=== PATIENT | female | born 1995 | race African-American/Black ===

== ENCOUNTER 2017-10-20 08:52 | Emergency (ER) | payer BC ==
[~2017-10-20] VITALS: Ht 152.4 cm; Wt 78.5 kg
[2017-10-20 08:53] VITALS: BP 123/75; PULSE 84; RESP 16; TEMP 98.8; O2SAT 99
[2017-10-20] MEDS ORDERED: LIDOCAINE VISCOUS 2% SOLN 15 ML UDC SWISH-SWAL STA (09:28)
--- NOTE | 2017-10-20 09:28 | PD ---
HPI Chief Complaint: Chest Pain Time Seen by Provider: 09:10 Travel History International Travel<30 days: No Contact w/Intl Traveler<30days: No Traveled to known affect area: No History of Present Illness HPI 22-year-old female presents to the emergency department complaining of midsternal chest pain that started last night. Patient states that whenever she rolls over in bed she has this pain in the middle of her chest that decreases with movement. States she had strep pharyngitis approximately 2 weeks ago and had treatment but denies any recent upper store infections including cough or cold-like symptoms. States the pain is 7 out of 10 and nonradiating. Patient denies trauma, shortness breath, nausea, vomiting, diarrhea. Pain is not positional. She denies family history of cardiac issues , denies tobacco use, hyperlipidemia, diabetes or hypertension. Patient does not take any medication regularly. Denies chronic medical issues. Last menstrual period September 10 which is not normal for her. PFSH Past Medical History Medical History: Denies Significant Hx Diminished Hearing: No ?: Unknown LMP: 09/11/17 Social History Alcohol Use: No Tobacco Use: No Substance Use: No Allergies-Medications (Allergen,Severity, Reaction): Coded Allergies: No Known Allergies (Verified Allergy, Unknown, 10/20/17) Reported Meds & Prescriptions Reported Meds & Active Scripts Active No Active Prescriptions or Reported Medications Review of Systems Except as stated in HPI: all other systems reviewed are Neg Physical Exam Narrative GENERAL: Well-developed well-nourished in no apparent distress, sitting comfortably in bed SKIN: Warm and dry. No ecchymosis or rashes HEAD: Normocephalic. EYES: No scleral icterus. No injection or drainage. NECK: Supple, trachea midline. No JVD or lymphadenopathy. THROAT: Mild pharyngeal injection without exudates or tonsillar hypertrophy. Airway is patent. CARDIOVASCULAR: Regular rate and rhythm without murmurs, gallops, or rubs. RESPIRATORY: Breath sounds equal bilaterally. No accessory muscle use. GASTROINTESTINAL: Abdomen soft, non-tender, nondistended. MUSCULOSKELETAL: No cyanosis, or edema. Palpation of midsternal area reproduces her pain. Norbert's sign negative. BACK: Nontender without obvious deformity. No CVA tenderness. Data Data Last Documented VS Vital Signs Date Time Temp Pulse Resp B/P (MAP) Pulse Ox O2 Delivery O2 Flow Rate FiO2 12/29/17 14:20 10/20/17 08:53 98.8 84 16 99 Room Air Orders Orders Chest, Single Ap (10/20/17 ) Ed Urine Pregnancytest Poc (10/20/17 09:17) Electrocardiogram (10/20/17 ) Al-Mag Hy-Si 40-40-4 Mg/Ml Liq (Mag-Al P (10/20/17 09:30) Lidocaine 2% Viscous (Xylocaine 2% Visco (10/20/17 09:28) D-Dimer (10/20/17 09:40) Basic Metabolic Panel (Bmp) (10/20/17 09:40) Ct Pulmonary Angiogram (10/20/17 ) Ventilation & Perfusion Scan (10/20/17 ) Iohexol 350 Inj (Omnipaque 350 Inj) (10/20/17 12:01) Ed Discharge Order (10/20/17 13:57) Labs Laboratory Tests Test 10/20/17 09:55 D-Dimer Quantitative (PE/DVT) 0.59 MG/L FEU Blood Urea Nitrogen 10 MG/DL Creatinine 0.74 MG/DL Random Glucose 90 MG/DL Calcium Level 8.5 MG/DL Sodium Level 139 MEQ/L Potassium Level 3.8 MEQ/L Chloride Level 106 MEQ/L Carbon Dioxide Level 25.1 MEQ/L Anion Gap 8 MEQ/L Estimat Glomerular Filtration Rate 120 ML/MIN MDM Medical Decision Making Medical Screen Exam Complete: Yes Emergency Medical Condition: Yes Differential Diagnosis Costochondritis, PE, NE, bronchitis, diffuse esophageal spasms Narrative Course 22-year-old female presents to the emergency department complaining of midsternal chest pain that started last night. Patient states that whenever she rolls over in bed she has this pain in the middle of her chest that decreases with movement. States she had strep pharyngitis approximately 2 weeks ago and had treatment but denies any recent upper store infections including cough or cold-like symptoms. States the pain is 7 out of 10 and nonradiating. Patient denies trauma, shortness breath, nausea, vomiting, diarrhea. Pain is not positional. She denies family history of cardiac issues , denies tobacco use, hyperlipidemia, diabetes or hypertension. Patient does not take any medication regularly. Denies chronic medical issues. Last menstrual period September 10 which is not normal for her. Vital signs stable. POC negative Physical exam findings- 22-year-old female resting comfortably in bed, palpation of the mid sternum reproduces her chest pain. Pharynx mildly injected without tonsillar hypertrophy or exudate. GI cocktail administered without significant relief CXR without acute process. EKG- concern for S1Q3T3 with T wave inversion lead III. Laboratory Tests Test 10/20/17 09:55 D-Dimer Quantitative (PE/DVT) 0.59 MG/L FEU Blood Urea Nitrogen 10 MG/DL Creatinine 0.74 MG/DL Random Glucose 90 MG/DL Calcium Level 8.5 MG/DL Sodium Level 139 MEQ/L Potassium Level 3.8 MEQ/L Chloride Level 106 MEQ/L Carbon Dioxide Level 25.1 MEQ/L Anion Gap 8 MEQ/L Estimat Glomerular Filtration Rate 120 ML/MIN D-dimer elevated. CT ordered to rule out PE. CT was unable to rule out PE secondary to poor IV flow. There was delay in the emergency department secondary to issues with the IV and the CT room. VQ scan ordered at the recommendation of the radiologist. Last Impressions Lung Scan-VQ Nuclear Medicine 10/20/17 0000 Signed Impressions: Service Date/Time: Friday, October 20, 2017 13:18 - CONCLUSION: Normal ventilation/perfusion lung scan. A Redd Saenz MD Chest X-Ray 10/20/17 0000 Signed Impressions: Service Date/Time: Friday, October 20, 2017 09:20 - CONCLUSION: No acute disease. Angel Gifford MD CT Angiography 10/20/17 0000 Signed Impressions: Service Date/Time: Friday, October 20, 2017 11:23 - CONCLUSION: 1. No evidence for pulmonary artery embolism to the proximal segmental level. More distal segmental and subsegmental pulmonary branches are not sufficiently visualized for evaluation. 2. Unremarkable CT examination of the chest. Ismael Dixon MD Patient advised follow-up with her primary care physician within 2-3 days. M86 Security information given. Advised to return to the emergency department for worsening or persists symptoms. Use Tylenol or Motrin per package instructions for symptom relief. [id number] antihistamines for rhinorrhea which may be a developing upper respiratory infection. Patient remain comfortable and in no acute distress throughout the visit. Patient states understanding and will comply with instructions as above. Diagnosis Primary Impression: Costochondral chest pain Referrals: Primary Care Physician Additional Instructions: Follow up with your primary care physician within 2-3 days. If your symptoms persist or worsen, return to the emergency department. You mat use tylenol or motrin per package instructions for your pain. Consider allergy medications for your nasal symptoms. Scripts No Active Prescriptions or Reported Meds Disposition: 01 DISCHARGE HOME Condition: Stable Madeline Martin Oct 20, 2017 09:28
[2017-10-20] MEDS ORDERED: ALUMINUM/MAGNESIUM/SIMETH 30 ML CUP PO ONE (09:30)
--- NOTE | 2017-10-20 09:53 | RADRPT ---
EXAM DATE/TIME: 10/20/2017 09:20 [facility] COMPARISON: No previous studies available for comparison. INDICATIONS : Chest pain. MEDICAL HISTORY : None. SURGICAL HISTORY : None. ENCOUNTER: Initial ACUITY: 1 day PAIN SCORE: 7/10 LOCATION: Bilateral chest FINDINGS: A single view of the chest demonstrates the lungs to be symmetrically aerated without evidence of mas s, infiltrate or effusion. The heart size is at the upper limits of normal with no perihilar edema. Osseous structures are intact. CONCLUSION: No acute disease. Angel Gifford MD on October 20, 2017 at 9:51 Board Certified Radiologist. This report was verified electronically.
[2017-10-20 10:27] LABS: BICARBONATE 25.1 MEQ/L (21.0-32.0); CALCIUM 8.5 MG/DL (8.5-10.1); CREATININE 0.74 MG/DL (0.50-1.00)
[2017-10-20] MEDS ORDERED: IOHEXOL 350 MG/ML 10 ML VIAL (for RAD DIAG) IVCONTRAST ONE (12:01)
--- NOTE | 2017-10-20 12:16 | RADRPT ---
EXAM DATE/TIME: 10/20/2017 11:23 [facility] COMPARISON: No previous studies available for comparison. INDICATIONS : Substernal chest pain and pressure.Elevated d dimer. IV CONTRAST: 75 cc Omnipaque 350 (iohexol) IV RADIATION DOSE: 10.59 CTDIvol (mGy) MEDICAL HISTORY : None SURGICAL HISTORY : None. ENCOUNTER: Initial ACUITY: 1 day PAIN SCALE: LOCATION: chest TECHNIQUE: Volumetric scanning of the chest was performed using a pulmonary embolism protocol MIP images were re constructed. Using automated exposure control and adjustment of the mA and/or kV according to patien t size, radiation dose was kept as low as reasonably achievable to obtain optimal diagnostic quality images. DICOM format image data is available electronically for review and comparison. Follow-up recommendations for detected pulmonary nodules are based at a minimum on nodule size and pa tient risk factors according to Fleischner Society Guidelines. FINDINGS: PULMONARY ARTERIES: The only arteries are visualized to the proximal segmental level without evidence for intraluminal fi lling defects. More distal segmental and subsegmental pulmonary branches are not adequately visualize d. LUNGS: Small subcentimeter cyst in the anterior left upper lobe. No focal parenchymal opacities. PLEURAE: There is no pleural thickening or pleural effusion. MEDIASTINUM: There is good visualization of the great vessels of the middle mediastinum. No evidence of mediastin al or hilar adenopathy/mass. MUSCULOSKELETAL: Within normal limits for patient age. MISCELLANEOUS: The visualized upper abdominal organs demonstrate no acute abnormality. CONCLUSION: 1. No evidence for pulmonary artery embolism to the proximal segmental level. More distal segmental a nd subsegmental pulmonary branches are not sufficiently visualized for evaluation. 2. Unremarkable CT examination of the chest. Ismael Dixon MD on October 20, 2017 at 12:09 Board Certified Radiologist. This report was verified electronically.
--- NOTE | 2017-10-20 13:54 | RADRPT ---
EXAM DATE/TIME: 10/20/2017 13:18 [facility] COMPARISON: CHEST SINGLE AP, October 20, 2017, 9:20. INDICATIONS : Dyspnea and chest pain. DOSE: 8.1 mCi Tc99m MAA IV 0.8 mCi Tc99m DTPA aerosol MEDICAL HISTORY : None SURGICAL HISTORY : None. ENCOUNTER: Initial ACUITY: 1 day PAIN SCALE: 1/10 LOCATION: Chest. TECHNIQUE: Following five minutes of tidal breathing of DTPA aerosol, planar images of the lungs were performed in eight projections. The patient was then injected with MAA, and eight-view perfusion scan was perf ormed. FINDINGS: There is a homogeneous pattern of aerosol delivery to the periphery of both lungs. No focal ventilat ory defects are seen. The perfusion lung scan demonstrates a homogenous pattern of uptake in both lungs. No segmental or s ubsegmental defects are seen. Chest x-ray demonstrates lungs to be clear. CONCLUSION: Normal ventilation/perfusion lung scan. A Redd Saenz MD on October 20, 2017 at 13:50 Board Certified Radiologist. This report was verified electronically.
--- NOTE | 2017-10-20 14:04 | EKG ---
Date Performed: 10/20/2017 Time Performed: 09:28:23 PTAGE: 22 years EKG: Sinus rhythm NONSPECIFIC T-WAVE ABNORMALITY BORDERLINE ECG NO PREVIOUS TRACING DOCTOR: Kyler Ann Interpretating Date/Time 10/20/2017 14:04:19
== END 2017-10-20 14:48 | disposition home or self-care (01) ==
LOC: NEPD 08:52
DX: R07.89 Other chest pain (principal); R05 Cough; R94.31 Abnormal electrocardiogram [ECG] [EKG]
CPT/HCPCS: 71010; 71275; 78582; 80048; 84703; 85379; 93005; 99285; A9540; A9567; Q9967

== ENCOUNTER 2018-01-21 13:11 | Emergency (ER) | payer SELFPAY ==
[~2018-01-21] VITALS: Ht 152.4 cm; Wt 75.0 kg
[2018-01-21 13:22] VITALS: BP 136/66; PULSE 94; RESP 16; TEMP 98.5; O2SAT 100
== END 2018-01-21 13:20 | disposition left against medical advice (07) ==
LOC: NED 13:11
DX: R11.0 Nausea (principal)
CPT/HCPCS: 99281

== ENCOUNTER 2018-09-07 23:27 | Inpatient (IN) ==
[2018-09-07] MEDS ORDERED: Citric Acid/Sodium Citrate Liq 30 ML UDC PO SCH (23:45)
[2018-09-07] MEDS ORDERED: Naloxone Inj 0.4 MG/ML Vial IV.PUSH PRN (23:58)
[2018-09-07] MEDS ORDERED: Oxytocin 30 Units/500ml Premix 30 UNITS/500 ML BAG IV.SIG ONE (23:58)
[2018-09-07] MEDS ORDERED: fentaNYL Citrate Inj 100 MCG/2 ML Ampul IV.PUSH PRN (23:58)
[2018-09-07] MEDS ORDERED: Sodium Chlor 0.9% Inj 500 ML IV.SIG PRN (23:58)
[2018-09-07] MEDS ORDERED: Sod Chloride 0.9% Inj 1,000 ML IV.CONT PRN (23:58)
[2018-09-08] MEDS ORDERED: Oxytocin 30 Units/500ml Premix 30 UNITS/500 ML BAG IV.SIG PRN
--- NOTE | 2018-09-08 00:05 | P.HPOB ---
Patient Name: Micki Borrero Date of : 89 Patient Status: Emergency Emergency Provider: Bar Weaver Date: 09/07/18 13:50 Initialization Date: 09/07/18 13:50 History of Present Illness Primary Care Physician: No Primary Care Physician Dr. Franco Richardson Chief Complaint: Leaking fluid cramping History of Present Illness: Patient is a 23-year-old white female G one P0 at 40 weeks [facility] and presents complaining of leaking fluid per vagina. Denies bleeding. She is having some crampy pains & contractions. heart rate tracing is reactive and were not seeing any contractions at this time. Gross SROM noted Weeks Gestation:: 40 Para: 0 : 1 Review of Systems All other systems reviewed negative except as stated in HPI PMFSH - Tobacco History Second Hand Smoke Exposure: No Tobacco Use In Past 30 Days: No Smoking Status: Never smoker - Alcohol History How Often Do You Have a Drink Containing Alcohol: Never - Substance Use History Substance History: No History of Abuse - Travel History History of Recent Travel: No Recent Travel in the [place] Within the Last 8 Weeks: No Recent Travel Out of the Country Within the Last 8 Weeks: No Medications and Allergies Allergies Allergy/AdvReac Type Severity Reaction Status Date / Time No Known Allergies Allergy Verified 09/07/18 13:19 Home Medications Medication Instructions Recorded Confirmed Type No Known Home Medications 09/07/18 09/07/18 History Exam Vital signs: Vital Signs 09/07/18 13:27 09/07/18 13:30 09/07/18 13:35 Temperature 98.7 F Pulse Rate 92 H 90 Respiratory Rate 17 Blood Pressure 118/64 Intake & Output 09/06/18 09/07/18 09/07/18 18:59 06:59 18:59 Weight 77.564 kg Narrative: GENERAL: Well-nourished, well-developed patient. SKIN: Warm and dry. HEAD: Normocephalic and atraumatic. EYES: No scleral icterus. No injection or drainage. ENT: No nasal drainage noted. Mucous membranes pink. Airway patent. NECK: Supple, trachea midline. No JVD. CARDIOVASCULAR: Regular rate and rhythm without murmurs, gallops, or rubs. RESPIRATORY: Breath sounds equal bilaterally. No accessory muscle use. BREASTS: Bilateral exam showed no masses , no retractions, no nipple discharge. ABDOMEN/GI: Abdomen soft, non-tender, bowel sounds present, no rebound, no guarding Gravid to [40-] weeks size Fundal Height: [37-] GENITOURINARY: External Genitalia: intact and normal in appearance BUS glands: [-] Cervix: [post-] Dilatation:- 1 cm Effacement: [ 60] Station: [-2] Presentation: [vtx-] Membranes: SROM Uterine Contractions: [ q 3 min] FHT's: Category: [1-] Baseline: [-133] Reactive: [R-] Variability: [-mod] Decels: [0-]+ accels EXTREMITIES: No cyanosis or edema. BACK: Nontender without obvious deformity. No CVA tenderness. NEUROLOGICAL: Awake and alert. Motor and sensory grossly within normal limits. Five out of 5 muscle strength in all muscle groups. Normal speech. Results - Labs Labs: Assessment and Plan - Diagnosis (1) leakage of amniotic fluid into vagina Code(s): Z03.71 - Encounter for suspected problem with amniotic cavity and membrane ruled out Status: Acute (2) Abdominal cramping affecting Code(s): O26.899 - Other specified related conditions, unspecified trimester; R10.9 - Unspecified abdominal pain Status: Acute (3) 40 weeks gestation of Code(s): Z3A.40 - 40 weeks gestation of Status: Acute - Plan Admit for SROM and early labor Plan to augment prn - Physicians Team ED Provider: Bar Weaver Primary Care Provider: Primary Care Physici,Shaye - Rxs /Orders / Referrals /Forms Prescriptions: No Action No Known Home Medications
[2018-09-08 00:40] LABS: Baso % (Auto) 0.4 % (0.0-2.0); Eos # (Auto) 0.1 th/mm3 (0.0-0.4); Eos % (Auto) 0.4 % (0.0-4.0); Hemoglobin 11.5 gm/dL (11.6-15.3); Lymph # (Auto) 2.2 th/mm3 (1.0-4.8); Mean Corpuscular HGB Conc 32.9 % (32.0-36.0); Mean Corpuscular Hemoglobin 29.3 pg (27.0-34.0); Mean Corpuscular Volume 89.1 fL (80.0-100.0); Mean Platelet Volume 7.9 fL (7.0-11.0); Mono # (Auto) 1.1 th/mm3 (0.0-0.9); Mono % (Auto) 9.8 % (0.0-8.0); Neut # (Auto) 8.2 th/mm3 (1.8-7.7); Neut % (Auto) 70.4 % (16.0-70.0); Platelet Count 272 th/mm3 (150-450); Red Blood Count 3.92 mil/mm3 (4.00-5.30); Red Cell Distribution Width 15.1 % (11.6-17.2); White Blood Count 11.7 th/mm3 (4.0-11.0)
[2018-09-08 00:44] LABS: Bilirubin,Urine Negative (Negative); Clarity,Urine Hazy (Clear); Color,Urine Yellow (Yellw/Straw); Glucose,Urine (UA) Negative (Negative); Leukocyte Esterase,Urine Negative (Negative); Mucus,Urine Few /lpf (Occasional); Nitrite,Urine Negative (Negative); Specific Gravity,Urine 1.021 (1.002-1.035); Squamous Epithelial Cell,Urine 2 /hpf (0-5)
[2018-09-08 00:50] LABS: Amphetamine Urine With Conf Neg (Neg); Benzodiazepine Urine With Conf Neg (Neg)
[2018-09-08] MEDS: fentaNYL Citrate Inj 100 MCG/2 ML Ampul IV.PUSH PRN ×3 (06:43→13:28)
[2018-09-08] MEDS ORDERED: fentaNYL 2MCG-Bupiv 0.125% Epi 150 ML EPIDURAL ONE (13:24)
[2018-09-08] MEDS ORDERED: Lidocaine PF 1% Inj 30 ML Vial ONE (13:49)
[2018-09-08] MEDS ORDERED: Lidocaaine 1.5%/Epinephrine 1:200,000 PF Inj 5 ML Amp ONE (13:49)
[2018-09-08] MEDS ORDERED: fentaNYL Citrate Inj 100 MCG/2 ML Ampul EPIDURAL ONE (14:47)
[2018-09-08] MEDS ORDERED: fentaNYL 2MCG-Bupiv 0.125% Epi 150 ML EPIDURAL PRN (14:47)
[2018-09-08] MEDS ORDERED: Measles/Mumps/Rubella Vaccine Inj 0.5 ML Vial SQ ONE (16:00)
[2018-09-08] MEDS ORDERED: Diphtheria/Tetanus/Pertussis Vaccine Inj 0.5 ML Syringe IM ONE (16:00)
--- NOTE | 2018-09-08 18:43 | P.OBGPN ---
Labor note Subjective: Patient is comfortable with epidural. Objective: Vital signs stable, category 1 heart rate, adequate contraction pattern with Pitocin and IUPC in place. Cervix 4-5 cm, -1 station per RN examination Assessment: Primigravida in early labor following PROM at term Plan: Continue Pitocin.
[2018-09-08 20:08] VITALS: RESP 18
[2018-09-08] MEDS ORDERED: Witch Hazel 50%/Glyderin 12.5% 40 Pad Jar RECTAL PRN (21:37)
[2018-09-08] MEDS ORDERED: Oxytocin 30 Units/500ml Premix 30 UNITS/500 ML BAG IV.CONT PRN (21:37)
[2018-09-08] MEDS ORDERED: Acetaminophen 325 MG Tablet PO PRN (21:37)
[2018-09-08] MEDS ORDERED: Zolpidem Tartrate 5 MG Tablet PO PRN (21:37)
[2018-09-08] MEDS ORDERED: Benzocaine 20% Top Spray 60 ML Can TOPICAL PRN (21:37)
[2018-09-08] MEDS ORDERED: Naloxone Inj 0.4 MG/ML Vial IV.PUSH PRN (21:37)
[2018-09-08] MEDS ORDERED: Bisacodyl 10 MG Supp RECTAL PRN (21:37)
--- NOTE | 2018-09-08 21:37 | P.OBDELI ---
Medical Induction of Labor: Yes Artificial Rupture of Membrane: No Anesthesia: Epidural Episiotomy: none Vaginal Delivery: Normal Presentation: Occiput anterior Nuchal Cord: x2 Delayed Cord Clamping (45 sec): Yes Placenta: Spontaneous delivery, Intact Laceration: None Estimated blood loss (mL): 150 Infant: Female
[2018-09-09] MEDS: Senna/Docusate Sodium 8.6/50 MG Tablet PO SCH ×2 (08:41→20:53)
--- NOTE | 2018-09-09 09:18 | P.PNOB ---
Subjective Interval history: Patient is a 23 year-old delivered at 40 weeks and 4 days. Patient is day 1 after . Patient's pain is well-controlled. Patient reports eating and drinking without any nausea or vomiting. Patient reports minimal bleeding. Patient has passed gas but no bowel movements. Patient is walking without lower extremity pain or shortness of breath. Patient reports desire for contraception. She denies any chest pain. Objective Vital Signs/I&O: Vital Signs 09/08/18 09:30 09/08/18 10:01 09/08/18 10:31 Temperature Pulse Rate 76 73 71 Respiratory Rate Blood Pressure 114/73 117/63 106/54 L 09/08/18 11:01 09/08/18 11:31 09/08/18 11:45 Temperature 97.7 F Pulse Rate 74 82 Respiratory Rate 16 Blood Pressure 111/58 L 115/59 L 09/08/18 13:04 09/08/18 13:40 09/08/18 14:07 Temperature 97.7 F Pulse Rate 89 73 91 H Respiratory Rate Blood Pressure 117/63 123/53 L 121/71 09/08/18 14:15 09/08/18 14:31 09/08/18 14:35 Temperature Pulse Rate 81 72 77 Respiratory Rate 16 Blood Pressure 112/69 119/50 L 09/08/18 14:40 09/08/18 14:50 09/08/18 15:10 Temperature Pulse Rate 71 78 76 Respiratory Rate Blood Pressure 108/62 102/56 L 09/08/18 15:31 09/08/18 15:40 09/08/18 16:25 Temperature Pulse Rate 77 76 73 Respiratory Rate Blood Pressure 111/60 105/57 L 09/08/18 17:00 09/08/18 17:05 09/08/18 17:10 Temperature 97.7 F Pulse Rate 79 81 Respiratory Rate 18 Blood Pressure 134/79 124/55 L 09/08/18 17:55 09/08/18 18:00 09/08/18 18:50 Temperature Pulse Rate 89 86 83 Respiratory Rate 16 Blood Pressure 09/08/18 19:05 09/08/18 19:06 09/08/18 19:15 Temperature 99.3 F Pulse Rate 87 90 89 Respiratory Rate 16 Blood Pressure 104/55 L 09/08/18 19:20 09/08/18 19:25 09/08/18 19:35 Temperature Pulse Rate 92 H 94 H 87 Respiratory Rate Blood Pressure 09/08/18 19:40 09/08/18 19:45 09/08/18 19:50 Temperature Pulse Rate 88 91 H 93 H Respiratory Rate Blood Pressure 09/08/18 19:55 09/08/18 20:00 09/08/18 20:05 Temperature Pulse Rate 91 H 92 H 92 H Respiratory Rate Blood Pressure 09/08/18 20:08 09/08/18 20:10 09/08/18 20:15 Temperature Pulse Rate 77 95 H 90 Respiratory Rate 18 Blood Pressure 118/61 09/08/18 20:20 09/08/18 20:25 09/08/18 20:31 Temperature Pulse Rate 90 89 81 Respiratory Rate Blood Pressure 130/72 09/08/18 20:40 09/08/18 20:45 09/08/18 20:50 Temperature Pulse Rate 89 87 83 Respiratory Rate Blood Pressure 09/08/18 20:55 09/08/18 21:10 09/08/18 21:43 Temperature 98.6 F 98.5 F Pulse Rate 80 100 H 85 Respiratory Rate 18 Blood Pressure 110/59 L 09/08/18 21:45 09/08/18 22:00 09/08/18 22:01 Temperature Pulse Rate 88 85 Respiratory Rate 18 Blood Pressure 107/43 L 113/57 L 09/08/18 22:15 09/08/18 22:16 09/08/18 22:30 Temperature Pulse Rate 80 132 H Respiratory Rate 18 18 Blood Pressure 100/47 L 89/68 L 09/08/18 22:45 09/08/18 23:00 09/08/18 23:45 Temperature 98.8 F Pulse Rate 70 71 68 Respiratory Rate 18 Blood Pressure 106/53 L 111/76 101/60 Intake & Output 09/08/18 09/09/18 09/09/18 18:59 06:59 18:59 Intake Total 1999 1000 / 1000 Balance 1999 1000 / 1000 Intake: IV 1999 1000 / 1000 LR 1000 mL Inj 1,000 ML @ 125 1999 1000 / 1000 mls/hr IV.CONT .[facility] Rx#: [id number] Result Diagrams: 09/08/18 00:30 Objective Remarks: GENERAL: Well-nourished, well-developed patient. CARDIOVASCULAR: Regular rate and rhythm without murmurs, gallops, or rubs. RESPIRATORY: Breath sounds equal bilaterally. No accessory muscle use. ABDOMEN/GI: Abdomen soft, non-tender. Fundus: Firm, non-tender below the umbilicus. GENITOURINARY: Light to moderate bleeding. EXTREMITIES: No cyanosis or edema, non-tender, without signs of DVT. Medications and IVs: Active Medications Acetaminophen (Tylenol) 650 mg PO Q4H PRN PRN Reason: PAIN SCALE 1 TO 2 Al Hydroxide/Mg Hydroxide (Milk Of Magnesia Liq) 30 ml PO Q12H PRN PRN Reason: Mild Constipation Benzocaine (Americaine 20% [place]) 1 spray TOPICAL Q4H PRN PRN Reason: For Perineum Discomfort Bisacodyl (Dulcolax Supp) 10 mg RECTAL DAILY PRN PRN Reason: SEVERE CONSITIPATION Oxytocin (Pitocin 30 Units/Ns 500 Ml Premix) 30 units in 500 mls @ 100 mls/hr IV.CONT UNSCH PRN PRN Reason: Heavy bleeding Ibuprofen (Motrin) 800 mg PO Q8H PRN PRN Reason: For Cramping Last Admin: 09/09/18 08:42 Dose: 800 mg Lactulose (Lactulose Liq) 30 ml PO DAILY PRN PRN Reason: SEVERE CONSITIPATION Miscellaneous Information (Misc Information) 1 each OTHER UNSCH PRN PRN Reason: SEE LABEL COMMENTS Stop: 09/09/18 14:47 Miscellaneous Information (Misc Information) 1 each OTHER UNSCH PRN PRN Reason: SEE LABEL COMMENTS Stop: 09/09/18 14:47 Naloxone HCl (Narcan Inj) 0.1 mg IV.PUSH Q2M PRN PRN Reason: for opiate reversal Ondansetron HCl (Zofran Odt) 4 mg PO Q6H PRN PRN Reason: NAUSEA OR VOMITING Oxycodone/Acetaminophen (Percocet 5/325 Mg) 2 tab PO Q4H PRN PRN Reason: PAIN SCALE 6 TO 10 Senna/Docusate Sodium (Esthela-Colace) 1 tab PO BID EDUARD Last Admin: 09/09/18 08:41 Dose: 1 tab Sennosides (Senokot) 17.2 mg PO Q12H PRN PRN Reason: Moderate Constipation Sodium Chloride (Ns Flush) 2 ml IV.FLUSH BID EDUARD Last Admin: 09/09/18 08:42 Dose: 2 ml Sodium Chloride (Ns Flush) 2 ml IV.FLUSH PRN PRN PRN Reason: FLUSH AFTER USING IV ACCESS Last Admin: 09/08/18 22:08 Dose: 2 ml Witch [place]/Glycerin (Tucks Pads) 1 applicatio RECTAL QID PRN PRN Reason: HEMORRHOIDS Zolpidem Tartrate (Ambien) 5 mg PO HS PRN PRN Reason: SLEEP Assessment and Plan - Diagnosis (1) care following vaginal delivery Code(s): Z39.2 - Encounter for routine follow-up Status: Acute - Plan Patient is a 23 year-old delivered at 40 weeks and 4 days. Patient is day 1 after . Continue routine care. Motrin and Percocet when necessary for pain. Encourage OOB Pelvic rest for 6 weeks will need follow-up appointment at that time. Contraception: Patient considering options. appropriately. Anticipate discharge tomorrow Discussed with Dr. Rao.
[2018-09-10] MEDS: Senna/Docusate Sodium 8.6/50 MG Tablet PO SCH (08:07)
--- NOTE | 2018-09-10 08:10 | P.PNOB ---
Subjective Post day: 2 Interval history: Patient is a 23 year-old delivered at 40 weeks and 4 days. Patient is day 2 after . Patient's pain is well-controlled. Patient reports eating and drinking without any nausea or vomiting. Patient reports minimal bleeding. Patient has passed gas but no bowel movements. Patient is walking without lower extremity pain or shortness of breath. Patient reports desire for contraception. She denies any chest pain. Objective Vital Signs/I&O: Vital Signs 09/09/18 08:42 09/09/18 19:35 Temperature 98.0 F 98.1 F Pulse Rate 88 81 Respiratory Rate 18 18 Blood Pressure 107/58 L 109/58 L Result Diagrams: 09/08/18 00:30 Objective Remarks: GENERAL: Well-nourished, well-developed patient. CARDIOVASCULAR: Regular rate and rhythm without murmurs, gallops, or rubs. RESPIRATORY: Breath sounds equal bilaterally. No accessory muscle use. ABDOMEN/GI: Abdomen soft, non-tender. Fundus: Firm, non-tender below umbilicus. GENITOURINARY: Light to moderate bleeding. EXTREMITIES: No cyanosis or edema, non-tender, without signs of DVT. Medications and IVs: Active Medications Acetaminophen (Tylenol) 650 mg PO Q4H PRN PRN Reason: PAIN SCALE 1 TO 2 Al Hydroxide/Mg Hydroxide (Milk Of Magnesia Liq) 30 ml PO Q12H PRN PRN Reason: Mild Constipation Benzocaine (Americaine 20% [place]) 1 spray TOPICAL Q4H PRN PRN Reason: For Perineum Discomfort Last Admin: 09/09/18 10:26 Dose: 1 spray Bisacodyl (Dulcolax Supp) 10 mg RECTAL DAILY PRN PRN Reason: SEVERE CONSITIPATION Oxytocin (Pitocin 30 Units/Ns 500 Ml Premix) 30 units in 500 mls @ 100 mls/hr IV.CONT UNSCH PRN PRN Reason: Heavy bleeding Ibuprofen (Motrin) 800 mg PO Q8H PRN PRN Reason: For Cramping Last Admin: 09/09/18 20:53 Dose: 800 mg Lactulose (Lactulose Liq) 30 ml PO DAILY PRN PRN Reason: SEVERE CONSITIPATION Naloxone HCl (Narcan Inj) 0.1 mg IV.PUSH Q2M PRN PRN Reason: for opiate reversal Ondansetron HCl (Zofran Odt) 4 mg PO Q6H PRN PRN Reason: NAUSEA OR VOMITING Oxycodone/Acetaminophen (Percocet 5/325 Mg) 2 tab PO Q4H PRN PRN Reason: PAIN SCALE 6 TO 10 Senna/Docusate Sodium (Esthela-Colace) 1 tab PO BID [facility] Last Admin: 09/10/18 08:07 Dose: 1 tab Sennosides (Senokot) 17.2 mg PO Q12H PRN PRN Reason: Moderate Constipation Sodium Chloride (Ns Flush) 2 ml IV.FLUSH BID [facility] Last Admin: 09/09/18 20:53 Dose: Not Given Sodium Chloride (Ns Flush) 2 ml IV.FLUSH PRN PRN PRN Reason: FLUSH AFTER USING IV ACCESS Last Admin: 09/08/18 22:08 Dose: 2 ml Witch Orly/Glycerin (Tucks Pads) 1 applicatio RECTAL QID PRN PRN Reason: HEMORRHOIDS Last Admin: 09/09/18 10:26 Dose: 1 applicatio Zolpidem Tartrate (Ambien) 5 mg PO HS PRN PRN Reason: SLEEP Assessment and Plan - Diagnosis (1) care following vaginal delivery Code(s): Z39.2 - Encounter for routine follow-up Status: Acute - Plan Patient is a 23 year-old delivered at 40 weeks and 4 days. Patient is day 2 after . Continue routine care. Motrin and Tylenol as needed for pain. Encourage OOB Pelvic rest for 6 weeks will need follow-up appointment at that time. Contraception: Patient considering options. Bottle feeding appropriately. Patient stable for discharge to home today. [facility] attending, Dr. Shahid
[2018-09-10 09:32] VITALS: BP 108/62; PULSE 74; TEMP 98
== END 2018-09-10 12:48 | disposition home or self-care (01) ==
LOC: HOBED 23:27 → H2E 09-08 00:39 → H1EA 09-08 23:47
PROVIDERS: ADMIT Obstetrics & Gynecology Maternal & Fetal Medicine; ATTEND Obstetrics & Gynecology Maternal & Fetal Medicine